=== PATIENT | male | born 1990 | race Caucasian/White ===

== ENCOUNTER 2018-09-08 00:55 | Inpatient (IN) | payer MEDICAID ==
[2018-09-08] MEDS ORDERED: NS 1,000 ML IV ONE ×2 (01:05→01:07)
[2018-09-08] MEDS ORDERED: TDAP ADULT 0.5 ML INJ (BOOSTRIX) IM ONE (01:06)
[2018-09-08] MEDS ORDERED: ceFAZolin 2 GM/DEXTROSE 100 ML IV ONE (01:06)
[2018-09-08] MEDS ORDERED: fentaNYL 100 MCG/2 ML INJ IVP ONE ×3 (01:06→01:41)
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
[2018-09-08 01:10] LABS: PLATELET COUNT 240 10^3/uL (150-400)
[2018-09-08 01:20] LABS: INR 1.01 (0.83-1.16); PROTIME(PATIENT) 12.9 SEC (12.0-15.0)
[2018-09-08] MEDS ORDERED: NALOXONE HCL 0.4 MG/ML INJ IVP PRN (01:31)
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
[2018-09-08] MEDS: HYDROmorphONE/DILAUDID 1 MG/ML INJ IVP PRN ×7 (03:01→23:18)
[2018-09-08] MEDS: NS W/ 20 KCl/L 1,000 ML IV SCH ×3 (03:03→19:42)
[2018-09-08] MEDS: LORazepam 2 MG/ML INJ IVP PRN ×2 (03:12→09:42)
[2018-09-08] MEDS: KETOROLAC 30 MG/1 ML SDV IVP SCH ×2 (04:36→09:42)
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
[2018-09-08] MEDS ORDERED: D50W 25 GM/50 ML SYR IVP PRN (10:26)
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
[2018-09-08] MEDS: INSULIN REGULAR HUMAN 100 UNIT/ML UNIT SC SCH ×3 (12:16→21:31)
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
[2018-09-08] MEDS ORDERED: INSULIN GLARGINE 100 UNITS/ML UNIT SC SCH (13:11)
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
[2018-09-09] MEDS: HYDROmorphONE/DILAUDID 1 MG/ML INJ IVP PRN ×11 (01:07→19:01)
[2018-09-09] MEDS: NS W/ 20 KCl/L 1,000 ML IV SCH ×3 (03:30→17:32)
[2018-09-09 04:11] LABS: PLATELET COUNT 203 10^3/uL (150-400)
[2018-09-09] MEDS ORDERED: ORAL BALANCE GEL TUBE PO PRN (04:14)
[2018-09-09] MEDS: INSULIN REGULAR HUMAN 100 UNIT/ML UNIT SC SCH ×4 (08:41→21:32)
[2018-09-09] MEDS: LORazepam 2 MG/ML INJ IVP PRN (10:02)
[2018-09-09] MEDS ORDERED: BUPIVACAINE/EPI 0.5% 30 ML SDV ONE (10:52)
[2018-09-09] MEDS ORDERED: BACITRACIN ZINC 0.5 OZ OINTTUBE TP ONE (10:52)
[2018-09-09] MEDS ORDERED: CHLORHEXIDINE GLUCONATE 15 ML UDL ONE (10:53)
[2018-09-09] MEDS ORDERED: LIDO/EPI 1% **Not for Epidural 20 ML MDV ONE (10:53)
[2018-09-09] MEDS ORDERED: CHLORHEXIDINE GLUC HIBICLENS 118 ML BTL TP ONE (10:53)
[2018-09-09] MEDS ORDERED: DEXAMETHASONE 4 MG/ML VIAL IVP PRN (11:21)
[2018-09-09] MEDS ORDERED: oxyCODONE IR 5 MG TAB PO PRN ×2 (11:21→17:39)
[2018-09-09] MEDS ORDERED: ONDANSETRON 4 MG/2 ML VIAL IVP PRN (11:21)
[2018-09-09] MEDS ORDERED: NALOXONE HCL 0.4 MG/ML INJ IVP PRN ×3 (11:21→18:58)
--- NOTE | 2018-09-09 11:21 | PDANEPAE ---
ANE History of Present Illness Mandible Fx Repair ANE Past Medical History - Pulmonary History Hx Oxygen in Use at Home: No Hx Sleep Apnea: No - Endocrine History Hx Diabetes: Yes - Chronic Pain History Chronic Pain: No ANE Review of Systems Review of Systems: ANE Patient History - Allergies Allergies/Adverse Reactions: No Known Allergies Allergy (Unverified 09/08/18 02:02) - Home Medications Home Medications: Amitriptyline HCl [Elavil 50 mg (*)] 50 mg PO HS 09/08/18 [Last Taken Unknown] Fluticasone Nasal [Flonase Nasal [place] (RX)] 1 - 2 sprays E[place] DAILY PRN 11/21 [Last Taken Unknown] Gabapentin [Gabapentin 800 mg] 800 mg PO QID 09/08/18 [Last Taken Unknown] Insulin Aspart [novoLOG] 5 - 20 unit SC AD 09/08/18 [Last Taken Unknown] Insulin Glargine [Lantus] 44 unit SC HS 09/08/18 [Last Taken Unknown] Ondansetron HCl [Zofran] 8 mg PO Q8H PRN 09/08/18 [Last Taken Unknown] traZODone [traZODONE 50MG (*)] 50 mg PO HS 09/08/18 [Last Taken Unknown] - Smoking Hx Smoking Status: Never smoked ANE Labs/Vital Signs - Labs Result Diagrams: 09/09/18 03:45 09/09/18 03:45 - Vital Signs Blood Pressure: 144/108 Heart Rate: 93 Respiratory Rate: 13 O2 Sat (%): 92 Height: 182.88 cm Weight: 93.5 kg ANE Physical Exam - Airway Neck exam: FROM Mallampati Score: Class 2 Mouth exam: normal dental/mouth exam - Pulmonary Pulmonary: clear to auscultation - Cardiovascular Cardiovascular: regular rate and rhythym - ASA Status ASA Status: II, E ANE Anesthesia Plan Anesthesia Plan: general endotracheal anesthesia Specialized Airway: fiberoptic intubation, nasal intubation
[2018-09-09] MEDS ORDERED: PROPOFOL 200 MG/20 ML VIAL ONE (11:40)
[2018-09-09] MEDS ORDERED: HYDROmorphONE/DILAUDID 2 MG/ML INJ ONE (11:40)
[2018-09-09] MEDS ORDERED: ceFAZolin 1 GM VIAL ONE ×2 (12:11)
[2018-09-09] MEDS ORDERED: fentaNYL 100 MCG/2 ML INJ ONE ×2 (12:24→14:55)
[2018-09-09] MEDS ORDERED: ONDANSETRON 4 MG/2 ML VIAL ONE (12:37)
[2018-09-09] MEDS ORDERED: METOCLOPRAMIDE 10 MG/2 ML VIAL ONE (12:37)
[2018-09-09] MEDS ORDERED: ROCURONIUM 50 MG/5 ML VIAL ONE ×3 (13:03)
[2018-09-09] MEDS ORDERED: BUPIVACAINE/EPI 0.25% 30 ML SDV ONE (13:56)
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
[2018-09-09] MEDS ORDERED: KETAMINE 200 MG/20 ML VIAL ONE (14:04)
--- NOTE | 2018-09-09 14:34 | POSTANESTH ---
Post Anesthetic Evaluation Cardiovascular Status: Normal, Stable Respiratory Status: Other, See Comment Level of Consciousness/Mental Status: Can Participate in Eval, Moderately Sleepy Pain Control: Adequate, Prn Tx Ordered Nausea/Vomiting Control: Adequate, Prn Tx Ordered Complications Possibly Related to Anesthesia: None Noted (Pt w/ Arch Bars, Cutter by bedside, Stable Airway)
[2018-09-09] MEDS ORDERED: LABETALOL HCL 5 MG/ML 20 ML MDV ONE (14:42)
[2018-09-09] MEDS: fentaNYL 100 MCG/2 ML INJ IVP PRN ×2 (14:57→15:05)
[2018-09-09] MEDS: LABETALOL HCL 5 MG/ML 20 ML MDV IVP PRN ×3 (15:04→15:26)
[2018-09-09] MEDS ORDERED: HYDROmorphONE/DILAUDID 1 MG/ML INJ ONE (15:17)
[2018-09-09] MEDS ORDERED: LORazepam 2 MG/ML INJ IVP PRN (17:39)
[2018-09-09] MEDS ORDERED: traMADol 50 MG TAB PO PRN (17:39)
[2018-09-09] MEDS: PIPERACILLIN/TAZO 2.25 GM/DEX 50 ML IV SCH ×2 (17:41→23:44)
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
[2018-09-09] MEDS ORDERED: HYDROmorphONE/DILAUDID 6 MG/30 ML PCA IV PRN (18:58)
[2018-09-09] MEDS ORDERED: IBUPROFEN SUSP 100 MG/5 ML UDCUP PO PRN (19:00)
[2018-09-09] MEDS ORDERED: morphINE PCA 30 MG/30 ML PCA IV PRN (20:20)
[2018-09-09] MEDS ORDERED: INSULIN GLARGINE 100 UNITS/ML UNIT SC SCH (21:00)
[2018-09-09] MEDS: morphINE PCA 30 MG/30 ML PCA IV PRN (21:11)
[2018-09-10] MEDS: NS W/ 20 KCl/L 1,000 ML IV SCH (00:52)
[2018-09-10] MEDS: morphINE PCA 30 MG/30 ML PCA IV PRN ×2 (04:15→12:34)
[2018-09-10 05:04] LABS: PLATELET COUNT 216 10^3/uL (150-400)
[2018-09-10] MEDS: PIPERACILLIN/TAZO 2.25 GM/DEX 50 ML IV SCH ×2 (05:47→13:49)
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
[2018-09-10] MEDS: HYDROCOD/APAP 7.5/325 IN 15ML UDCUP PO PRN ×2 (08:37→13:48)
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
[2018-09-10] MEDS: INSULIN REGULAR HUMAN 100 UNIT/ML UNIT SC SCH ×4 (09:17→22:27)
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
[2018-09-10] MEDS ORDERED: ACETAMINOPHEN 650 MG/20.3 ML UDCUP PO PRN (14:42)
[2018-09-10] MEDS ORDERED: INSULIN GLARGINE 100 UNITS/ML UNIT SC SCH (14:43)
[2018-09-10] MEDS ORDERED: LORazepam 1 MG/0.5 ML UDSYR PO PRN (14:44)
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
[2018-09-10] MEDS: ONDANSETRON 4 MG/2 ML VIAL IVP PRN (16:07)
[2018-09-10] MEDS: oxyCODONE ORAL SOLUTION 10 MG/0.5 ML UDSYR PO PRN ×3 (16:17→21:30)
[2018-09-10] MEDS: HYDROmorphONE/DILAUDID 1 MG/ML INJ IVP PRN ×2 (16:18→20:19)
[2018-09-10] MEDS ORDERED: HYDROmorphONE/DILAUDID 1 MG/ML INJ IVP ONE (17:15)
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
[2018-09-10] MEDS: KETOROLAC 30 MG/1 ML SDV IVP PRN ×2 (18:00→23:58)
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
[2018-09-10] MEDS: AMPICILLIN/SULBACTAM 1.5 GM in NS 50 ML IV SCH ×2 (18:41→23:58)
[2018-09-11] MEDS: oxyCODONE ORAL SOLUTION 10 MG/0.5 ML UDSYR PO PRN ×4 (04:32→14:05)
[2018-09-11] MEDS: AMPICILLIN/SULBACTAM 1.5 GM in NS 50 ML IV SCH ×2 (06:04→11:45)
[2018-09-11] MEDS: KETOROLAC 30 MG/1 ML SDV IVP PRN (06:05)
[2018-09-11] MEDS: HYDROmorphONE/DILAUDID 1 MG/ML INJ IVP PRN (06:13)
[2018-09-11 07:28] VITALS: BP 132/96
[2018-09-11] MEDS: ONDANSETRON 4 MG/2 ML VIAL IVP PRN (07:45)
[2018-09-11] MEDS: INSULIN REGULAR HUMAN 100 UNIT/ML UNIT SC SCH ×2 (07:45→11:36)
[2018-09-11] MEDS ORDERED: PROMETHAZINE HCL 25 MG TAB PO PRN (09:11)
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
--- NOTE | 2018-09-11 16:22 | ASMTLACE ---
LACE Length of stay for Answers: 4-6 days current admission Acuity / Level of Answers: Yes Care: Did the patient have an inpatient admission? Comorbidities - select Answers: Diabetes (uncontrolled or all that apply controlled) # of Emergency department Answers: 1-2 visits in the last 6 months Score: 9 Date Signed: 09/11/2018 04:21 PM Electronically Signed By:CLARENCE Marks
--- NOTE | 2018-09-11 16:24 | ASMTCMCOM ---
CM Note CM Note Notes: Pt medically stable for d/c home with family support. PT rec home. No CM d/c needs identified. Date Signed: 09/11/2018 04:24 PM Electronically Signed By:CLARENCE Marks
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
== END 2018-09-11 16:24 | disposition home or self-care (01) | DRG 115 ==
LOC: EDBD 00:55 → F2N 02:51 → F3N 09-09 16:36
PROVIDERS: ADMIT Surgery; ATTEND Surgery
PROC: 0NSV35Z Reposition Left Mandible with External Fixation Device, Percutaneous Approach (ICD-10-PCS; principal; 2018-09-09 12:00)
PROC: 0NST35Z Reposition Right Mandible with External Fixation Device, Percutaneous Approach (ICD-10-PCS; principal; 2018-09-09 12:00)
PROC: 0NSB3ZZ Reposition Nasal Bone, Percutaneous Approach (ICD-10-PCS; 2018-09-10)
DX: S02.601A Fracture of unspecified part of body of right mandible, initial encounter for closed fracture (principal); S02.602A Fracture of unspecified part of body of left mandible, initial encounter for closed fracture; S02.31XA Fracture of orbital floor, right side, initial encounter for closed fracture; S02.2XXA Fracture of nasal bones, initial encounter for closed fracture; S02.40CA Maxillary fracture, right side, initial encounter for closed fracture; G89.11 Acute pain due to trauma; G92 Toxic encephalopathy; Y09 Assault by unspecified means; E10.40 Type 1 diabetes mellitus with diabetic neuropathy, unspecified; Z79.4 Long term (current) use of insulin
CPT/HCPCS: 80305; 82435-PO; 82565-PO; 82947-PO; 84132-PO; 84295-PO; 84520-PO; 85014-ER; 92526-GN; 92610-GN; 96365; 97116-GP; 97162-GP; 97166-GO; G0480; J0295; J0690; J1170; J1200; J1815; J1885; J2060; J2270; J2405; J2543; J2704; J2765; J3010; L0172; L0172-ER

== ENCOUNTER 2018-09-11 19:51 | Emergency (ER) | payer MEDICAID ==
--- NOTE | 2018-09-11 20:40 | EDPHY ---
H & P Stated Complaint: fever after facial surgery Time Seen by Provider: 09/11/18 20:38 HPI/ROS: CHIEF COMPLAINT: Fever, jaw pain HISTORY OF PRESENT ILLNESS: The patient presents the ED after he developed a low-grade fever today. The patient was recently hospitalized here [facility] for treatment of a jaw fracture. The patient was seen by Dr. Zamudio from oral surgery. The patient is currently on oral antibiotics. He is currently taking morphine for pain control. In reviewing his in- patient hospitalization he had difficulty with pain management. The patient's daughter is also sick with a mild fever. The patient denies any abdominal pain , vomiting or additional complaints. The patient is a diabetic. He has been drinking smoothies today. REVIEW OF SYSTEMS: A comprehensive 10 point review of systems is otherwise negative aside from elements mentioned in the history of present illness. Source: Patient Exam Limitations: No limitations - Personal History Current Tetanus/Diphtheria Vaccine: No Current Tetanus Diphtheria and Acellular Pertussis (TDAP): No - Medical/Surgical History Hx Asthma: No Hx Chronic Respiratory Disease: No Hx Diabetes: Yes Hx Cardiac Disease: No Hx Renal Disease: No Hx Cirrhosis: No Hx Alcoholism: No Hx HIV/AIDS: No Hx Splenectomy or Spleen Trauma: No Other PMH: pernicious anemia, iddm, compartment syndrome, facial/jaw surgery - Social History Smoking Status: Never smoked - Physical Exam Exam: General Appearance: Alert, no distress Head: Facial ecchymoses Eyes: Pupils equal, round, reactive ENT, Mouth: Jaw wired shut Neck: Nontender, trachea midline Respiratory: No chest wall tender,no subcutaneous air, lungs clear bilaterally Cardiovascular: Regular rate and rhythm Abdomen: Abdomen is soft and nontender, pelvis stable Skin: No lacerations, No abrasion Back: No midline T/L/S pain Extremities: Nontender, full range of motion Neurological: A&Ox3, normal motor function, normal sensory exam Constitutional: Initial Vital Signs Temperature (C) 37.3 C 09/11/18 19:53 Heart Rate 104 H 09/11/18 19:53 Respiratory Rate 16 09/11/18 19:53 Blood Pressure 125/88 H 09/11/18 19:53 O2 Sat (%) 95 09/11/18 19:53 O2 Delivery Mode Room Air Allergies/Adverse Reactions: No Known Allergies Allergy (Verified 09/11/18 19:56) Home Medications: Medication Instructions Recorded Amitriptyline HCl [Elavil 50 mg 50 mg PO HS 09/08/18 (*)] Fluticasone Nasal [Flonase Nasal 1 - 2 sprays EACHNARE DAILY PRN 09/08/18 Many] Gabapentin [Gabapentin 800 mg] 800 mg PO QID 09/08/18 Insulin Aspart [novoLOG] 5 - 20 unit SC AD 09/08/18 Insulin Glargine [Lantus] 44 unit SC HS 09/08/18 Ondansetron HCl [Zofran] 8 mg PO Q8H PRN 09/08/18 traZODone [traZODONE 50MG (*)] 50 mg PO HS 09/08/18 Acetaminophen [Tylenol 650/20.3ML 650 mg PO Q4HRS PRN #60 udcup 09/11/18 Oral Liq (*)] Amoxicillin/Potassium Clav [Amox 800 mg PO BID 10 Days #200 09/11/18 Tr-K Clv 400-57/5 Susp] susp.recon Insulin Glargine [Lantus Syringe] 44 units SC HS unit 09/11/18 Insulin Regular Human [HumuLIN R] 0 unit SC ACHS unit 09/11/18 Promethazine HCl [Phenergan 25mg 12.5 mg PO Q6HRS PRN tab 09/11/18 (*)] Promethazine HCl [Phenergan 25mg 25 mg PO Q6 PRN #30 tab 09/11/18 (*)] morphINE [Roxanol 10 mg/0.5 ml 5 - 10 mg PO Q4 PRN #303 ml 09/11/18 oral soln (*)] Medical Decision Making ED Course/Re-evaluation: Patient is afebrile in the emergency department. He is nontoxic and well- appearing. The patient's fingerstick was checked emergency department and found to be reassuring at 171. Patient is currently taking antibiotics. I have advised the patient to follow up with his oral surgeon tomorrow for any ongoing pain issues. The patient should return to the ED for markedly worsening symptoms or other concerns. - Data Points Laboratory Results: 09/11/18 20:50 POC Glucose 171 mg/dL H mg/dL (70-100) Point of Care Test Results: Chemistry 09/11/18 20:50 POC Glucose 171 mg/dL H mg/dL (70-100) Departure - Departure Disposition: Home, Routine, Self-Care Clinical Impression: Jaw fracture Condition: Good Instructions: Jaw Wiring (DC) Additional Instructions: 1. Please continue the medications prescribed at discharge. 2. Please contact your surgeon tomorrow to schedule a follow-up visit. 3. Return to the ED for markedly worsening symptoms or other concerns. Referrals: Sanam Pro PA [Primary Care Provider] - As per Instructions
[2018-09-11 20:54] VITALS: BP 137/69
== END 2018-09-11 21:08 | disposition home or self-care (01) ==
DX: R50.9 Fever, unspecified (principal); R68.84 Jaw pain; E11.9 Type 2 diabetes mellitus without complications; Z79.4 Long term (current) use of insulin